=== PATIENT | male | born 1950 | race Caucasian/White ===

== ENCOUNTER 2019-12-27 06:26 | Day surgery (SDC) | payer MEDICARE, OTHER ==
[~2019-12-27 06:26] MED LIST: Midazolam 1 MG/ML 2 ML SDV ONE; Sodium Chloride 0.9% 10 ML Syringe FLUSH PRN; fentaNYL 100 MCG/2 ML SDV ONE
[2019-12-27] MEDS ORDERED: Midazolam 1 MG/ML 2 ML SDV IV ONE (06:27)
[2019-12-27] MEDS ORDERED: fentaNYL 100 MCG/2 ML SDV IV ONE (06:27)
[2019-12-27] MEDS: Dextrose 5%-0.45% NaCl 1,000 ML IV SCH (06:50)
[2019-12-27] MEDS: fentaNYL 100 MCG/2 ML SDV IV ONE ×2 (07:18→07:19)
[2019-12-27] MEDS: Midazolam 1 MG/ML 2 ML SDV IV ONE ×2 (07:19→07:20)
[2019-12-27] MEDS: Sodium Chloride 0.9% 1,000 ML IV SCH (07:22)
--- NOTE | 2019-12-27 08:04 | OR ---
DATE: 12/27/2019 PROCEDURE PERFORMED: Total colonoscopy. INSTRUMENT USED: [id number] Olympus video colonoscope. PREMEDICATIONS: Fentanyl 100 mcg intravenous, Versed 2 mg intravenous. Nasal O2 cannula. The procedure was done under pulse oximetry, BP recording, and cardiac cath lab technologist. INDICATION: Screening colonoscopic examination is done for detection of any polypoid lesions and removal, endoscopic hemostasis therapy if needed. DESCRIPTION OF PROCEDURE: Initial rectal exam was unremarkable. Rigid anoscopy was normal. The colonoscope was passed with ease. Numerous scattered diverticula were noted in the distal left colon along with deformity. The scope was passed with ease up to the ileocecal area. Photographs were taken of the normal-appearing cecum identified by landmarks of appendiceal orifice and double- bulged ileocecal folds. No bleeding was noted from any of the visualized areas at the commencement of the examination. The bowel preparation was found to be adequate. [place] scale was 3 in all the regions, total score 9. No stricture. No vascular ectasia. No large isolated ulcerations seen. No evidence of diffuse inflammatory bowel disease in the form of friability, contact bleeding, or ulcerations. No polyp or tumor mass identified. Probing the proximal sides of folds and flexures using adequate distention and clearing up the stool material, withdrawal of the scope was made. Cecum to rectum time over 6 minutes. No bleeding was noted from any of the visualized areas at the completion of the examination. IMPRESSION: Diverticulosis. The patient tolerated the procedure well. [facility] /[id number]
== END 2019-12-27 09:40 | disposition home or self-care (01) ==
LOC: DL.ENDO 06:26
PROVIDERS: ATTEND Internal Medicine Gastroenterology
DX: Z12.11 Encounter for screening for malignant neoplasm of colon (principal); K57.30 Diverticulosis of large intestine without perforation or abscess without bleeding; I25.10 Atherosclerotic heart disease of native coronary artery without angina pectoris; I10 Essential (primary) hypertension; E78.5 Hyperlipidemia, unspecified; F41.1 Generalized anxiety disorder; F32.9 Major depressive disorder, single episode, unspecified; N52.9 Male erectile dysfunction, unspecified
CPT/HCPCS: J2250; J3010; J7030; J7042

== ENCOUNTER 2020-05-19 10:12 | Emergency (ER) | payer MEDICARE, OTHER ==
--- NOTE | 2020-05-19 10:23 | EDM.PDOC ---
ED HPI GENERAL MEDICAL PROBLEM - General Stated Complaint: PASSED OUT/BLACKED OUT RIGHT RIBS HURT Time Seen by Provider: 05/19/20 10:23 Source of Information: Reports: Patient History Limitations: Reports: No Limitations - History of Present Illness INITIAL COMMENTS - FREE TEXT/NARRATIVE: This 69 yo male patient reports to the ED due to an episode of syncope that happened at about 0130 this morning. The patient reports he was standing at the bathroom sink when he passed out. The patient reports when he passed out he fell backwards onto the toilet. The patient reports he just stayed in the bathroom until just prior to his arrival in the ED. The patient reports he continues to have dizziness with movement and has right posterior rib pain. The patient does have a history of cardiac stents placed 20 years ago, hypertension, anxiety, depression and CAD. The patient reports he has been doing well since his stents and his last visit with cardiology went very well. Onset: Today Onset Date: 05/19/20 Onset Time: 01:30 Duration: Constant Location: Reports: Chest, Other Quality: Reports: Other Severity: Moderate Improves with: Reports: None Worsens with: Reports: None Context: Reports: Other Associated Symptoms: Reports: Other (right posterior chest wall pain) - Related Data Allergies Allergy/AdvReac Type Severity Reaction Status Date / Time No Known Allergies Allergy Verified 05/19/20 10:21 Home Meds: Home Meds Aspirin [Aspirin EC] 81 mg PO DAILY 12/25/19 [History] Escitalopram Oxalate 10 mg PO DAILY 12/25/19 [History] Metoprolol Succinate [Toprol Xl] 75 mg PO DAILY 12/25/19 [History] Multivitamin [Multivitamins] 1 tab PO DAILY 12/25/19 [History] Nitroglycerin 0.4 mg SL ASDIRECTED PRN 12/25/19 [History] Ranitidine HCl 150 mg PO DAILY 12/25/19 [History] atorvaSTATin Calcium [Atorvastatin Calcium] 80 mg PO DAILY 12/25/19 [History] traZODone HCl [Trazodone HCl] 50 mg PO BEDTIME 12/25/19 [History] Sildenafil [Revatio] 60 mg PO ASDIRECTED PRN 12/26/19 [History] Past Medical History HEENT History: Reports: None Cardiovascular History: Reports: CAD, High Cholesterol, Hypertension, [place] Respiratory History: Reports: None Gastrointestinal History: Reports: Chronic Diarrhea, GERD Genitourinary History: Reports: BPH Musculoskeletal History: Reports: Arthritis, Fracture, Gout Neurological History: Reports: None Psychiatric History: Reports: None Endocrine/Metabolic History: Reports: None Hematologic History: Reports: None Immunologic History: Reports: None Oncologic (Cancer) History: Reports: None Dermatologic History: Reports: None - Infectious Disease History Infectious Disease History: Reports: None - Past Surgical History HEENT Surgical History: Reports: None Cardiovascular Surgical History: Reports: Coronary Artery Stent Respiratory Surgical History: Reports: None GI Surgical History: Reports: None Male Surgical History: Reports: None Neurological Surgical History: Reports: None Musculoskeletal Surgical History: Reports: Carpal Tunnel Social & Family History - Caffeine Use Caffeine Use: Reports: Coffee Caffeine Use Comment: 2-3 cups daily ED ROS GENERAL - Review of Systems Review Of Systems: Comprehensive ROS is negative, except as noted in HPI. - Physical Exam Exam: See Below Exam Limited By: No Limitations General Appearance: Alert, WD/WN, Mild Distress Eye Exam: Bilateral Eye: EOMI, Normal Inspection, PERRL Ears: Normal External Exam, Normal Canal, Hearing Grossly Normal, Normal TMs Nose: Normal Inspection, Normal Mucosa, No Blood Throat/Mouth: Normal Inspection, Normal Lips, Normal Teeth, Normal Gums, Normal Oropharynx, Normal Voice, No Airway Compromise Head Exam: Atraumatic, Normocephalic Neck: Normal Inspection, Supple, Non-Tender, Full Range of Motion Respiratory/Chest: No Respiratory Distress, Lungs Clear, Normal Breath Sounds, No Accessory Muscle Use, Other (right posterior rib pain) Cardiovascular: Normal Peripheral Pulses, Regular Rate, Rhythm, No Edema, No Gallop, No JVD, No Murmur, No Rub GI/Abdominal: Normal Bowel Sounds, Soft, Non-Tender, No Organomegaly, No Abnormal Bruit, No Mass, Pelvis Stable, Guarding (Male) Exam: Deferred Rectal (Males) Exam: Deferred Neuro Exam (Abbreviated): Alert, Oriented, CN II-XII Intact, Normal Cognition, Normal Gait, Normal Reflexes, No Motor/Sensory Deficits Back Exam: Normal Inspection, Full Range of Motion, NT Extremities: Normal Inspection, Normal Range of Motion, Non-Tender, No Pedal Edema, Normal Capillary Refill Psychiatric: Normal Affect, Normal Mood Skin Exam: Warm, Dry, Intact, Normal Color, No Rash #1 Interpretation EKG Date: 05/19/20 Time: 10:24 Rhythm: NSR [place]: Normal P-Wave: Present QRS: Normal ST-T: Normal QT: Normal Comparison: NA - No Prior EKG Course - Vital Signs Last Recorded V/S: Last Vital Signs Temp 36.7 C 05/19/20 10:21 Pulse 69 05/19/20 10:21 Resp 16 05/19/20 10:21 BP 144/85 H 05/19/20 10:21 Pulse Ox 97 05/19/20 10:21 - Orders/Labs/Meds Orders: Active Orders 24 hr Category Date Time Status EKG Documentation Completion [RC] STAT Care 05/19/20 10:19 Active Labs: Laboratory Tests 05/19/20 05/19/20 05/19/20 Range/Units 10: 10:28 11:41 WBC 11.5 H (5.0-10.0) 10^3/uL RBC 4.89 (4.6-6.2) 10^6/uL Hgb 15.6 (14.0-18.0) g/dL Hct 44.8 (40.0-54.0) % MCV 91.6 (80-100) fL MCH 31.9 (27.0-34.0) pg MCHC 34.8 (33.0-35.0) g/dL Plt Count 225 (150-450) 10^3/uL Neut % (Auto) 89.7 H (42.2-75.2) % Lymph % (Auto) 5.2 L (20.5-50.1) % [place] % (Auto) 4.7 (2-8) % Eos % (Auto) 0.1 L (1.0-3.0) % Baso % (Auto) 0.3 (0.0-1.0) % Sodium 142 (136-145) mmol/L Potassium 4.2 (3.5-5.1) mmol/L Chloride 103 (98-107) mmol/L Carbon Dioxide 27 (21-32) mmol/L Anion Gap 16.2 H (7-13) mEq/L BUN 15 (7-18) mg/dL Creatinine 1.04 (0.70-1.30) mg/dL Est Cr Clr Drug Dosing 71.40 mL/min Estimated GFR (MDRD) > 60 BUN/Creatinine Ratio 14.4 (No establ ref range) Glucose 165 H (74-99) mg/dL Calcium 8.8 (8.5-10.1) mg/dL Total Bilirubin 0.7 (0.2-1.0) mg/dL AST 21 (15-37) U/L ALT 35 (16-63) U/L Alkaline Phosphatase 80 (46-116) U/L Troponin I < 0.017 (0.000-0.056) ng/mL Total Protein 7.4 (6.4-8.2) g/dL Albumin 3.9 (3.4-5.0) g/dL Globulin 3.5 Albumin/Globulin Ratio 1.1 Urine Color Yellow (YELLOW) Urine Appearance Clear (CLEAR) Urine pH 5.0 (5.0-9.0) Ur Specific [place] >= 1.030 (1.005-1.030) Urine Protein Negative (NEGATIVE) Urine Glucose (UA) Negative (NEGATIVE) Urine Ketones Negative (NEGATIVE) Urine Occult Blood Negative (NEGATIVE) Urine Nitrite Negative (NEGATIVE) Urine Bilirubin Negative (NEGATIVE) Urine Urobilinogen 0.2 (0.2-1.0) mg/dL Ur Leukocyte Esterase Negative (NEGATIVE) Meds: Medications Discontinued Medications Generic Name Dose Route Start Last Admin Trade Name Freq PRN Reason Stop Dose Admin Meclizine HCl 25 mg 05/19/20 11:25 05/19/20 11:43 Meclizine 12.5 Mg Tab PO 05/19/20 11:26 25 mg ONETIME ONE Administration Departure - Departure Time of Disposition: 12:19 Disposition: Home, Self-Care 01 Condition: Fair Clinical Impression: BPPV (benign paroxysmal positional vertigo) Qualifiers: Laterality: unspecified laterality Qualified Code(s): H81.10 - Benign paroxysmal vertigo, unspecified ear Syncope Qualifiers: Syncope type: unspecified Qualified Code(s): R55 - Syncope and collapse - Discharge Information *PRESCRIPTION DRUG MONITORING PROGRAM REVIEWED*: Not Applicable *COPY OF PRESCRIPTION DRUG MONITORING REPORT IN PATIENT NATALY: Not Applicable Instructions: Vertigo, Akne-dx-Titd, Syncope, [id number] Forms: ED Department Discharge Care Plan Goals: The patient was advised of the examination, lab, EKG and x-ray results during the visit. The patient was given a dose of Meclizine while in the ED. The patient was discharged with a script for Meclizine (25 mg) #20 to take 1 by mouth 3 times per day as needed of dizziness. If the patient has any additional symptoms or concerns, the patient should either return to the emergency department or visit his primary care facility. Sepsis Event Note (ED) - Focused Exam Vital Signs: Vital Signs Temp Pulse Resp BP Pulse Ox 05/19/20 10:21 36.7 C 69 16 144/85 H 97 - My Orders Last 24 Hours: My Active Orders 05/19/20 10:19 EKG Documentation Completion [RC] STAT - Assessment/Plan Last 24 Hours: My Active Orders 05/19/20 10:19 EKG Documentation Completion [RC] STAT
--- NOTE | 2020-05-19 10:55 | CR ---
PROCEDURE INFORMATION: Exam: XR Right Ribs with PA Chest Exam date and time: 05/19/2020 10:27 AM Age: 69 years old Clinical indication: Other: Low posterior right rib pain; Additional info: Syncope, fall, right rib pain TECHNIQUE: Imaging protocol: XR Right ribs with PA chest. Views: 3 views COMPARISON: CT Chest Abdomen Pelvis w Cont 01/29/2020 8:48 AM FINDINGS: Lungs: Unremarkable. No consolidation. Pleural spaces: Fluid or thickened pleura in the left costophrenic angle. Heart/Mediastinum: Unremarkable. No cardiomegaly. Vasculature: Aortic calcifications. Diaphragm: Elevated right hemidiaphragm Bones/joints: Deformity suspicious for nondisplaced fracture the anterior right 9th and 10th ribs near the costochondral junction. Degenerative arthritis in the spine and shoulders. IMPRESSION: 1. Findings suspicious for nondisplaced fractures of the right anterior 9th and 10th ribs near the costochondral junction
[2020-05-19 10:58] LABS: ANION GAP 16.2 mEq/L (7-13); CHLORIDE,CL 103 mmol/L (98-107); SODIUM,NA 142 mmol/L (136-145)
[2020-05-19] MEDS ORDERED: Meclizine 12.5 MG Tab PO ONE (11:25)
== END 2020-05-19 12:36 | disposition home or self-care (01) ==
LOC: DL.ED 10:12
DX: H81.10 Benign paroxysmal vertigo, unspecified ear (principal); R55 Syncope and collapse; R07.81 Pleurodynia; I25.10 Atherosclerotic heart disease of native coronary artery without angina pectoris; I25.2 Old myocardial infarction; E78.00 Pure hypercholesterolemia, unspecified; I10 Essential (primary) hypertension; K21.9 Gastro-esophageal reflux disease without esophagitis; Z95.5 Presence of coronary angioplasty implant and graft; Z79.82 Long term (current) use of aspirin; Z79.899 Other long term (current) drug therapy
CPT/HCPCS: 36415; 71101; 80053; 81003; 84484; 85025; 93005; 93010; 99284; A9270

== ENCOUNTER 2021-03-28 20:32 | Emergency (ER) | payer MEDICARE, OTHER ==
[2021-03-28] MEDS ORDERED: Metoprolol Tartrate 5 MG/5 ML SDV IVPUSH ONE (21:02)
[2021-03-28] MEDS ORDERED: Sodium Chloride 0.9% 10 ML Syringe FLUSH PRN (21:06)
[2021-03-28] MEDS ORDERED: Iopamidol 755 Mg/ML 100 ML Bottle IVPUSH ONE (21:10)
[2021-03-28] MEDS ORDERED: NITROPRUSSIDE 50 MG/2 ML ONE (21:12)
[2021-03-28] MEDS ORDERED: Nitroprusside 50 MG in Dextrose 5% in Water 248 ML IV SCH ×2 (21:15)
[2021-03-28 22:02] LABS: CHLORIDE,CL 103 mmol/L (98-107); SODIUM,NA 137 mmol/L (136-145)
[2021-03-28] MEDS ORDERED: GI Cocktail Oral Solution 30 ML PO ONE (22:58)
[2021-03-29] MEDS ORDERED: Omeprazole 20 MG Cap.CR PO ONE (01:52)
== END 2021-03-29 02:22 | disposition home or self-care (01) ==
LOC: DL.ED 20:32
DX: R07.9 Chest pain, unspecified (principal); K21.9 Gastro-esophageal reflux disease without esophagitis; I25.10 Atherosclerotic heart disease of native coronary artery without angina pectoris; E78.00 Pure hypercholesterolemia, unspecified; I10 Essential (primary) hypertension; I25.2 Old myocardial infarction; Z79.82 Long term (current) use of aspirin; Z79.899 Other long term (current) drug therapy; Z95.5 Presence of coronary angioplasty implant and graft
CPT/HCPCS: 36415; 71260; 74177; 80053; 82150; 83605; 83615; 83690; 83735; 83880; 84443; 84484; 85025; 85379; 85610; 86140; 93005; 93010; 96365; 96366; 99285; 99285-25; A9270-GY; J7060; Q9967

== ENCOUNTER 2023-03-11 01:38 | Emergency (ER) | payer MEDICARE, OTHER ==
[2023-03-11] MEDS ORDERED: Succinylcholine 200 MG/10 ML MDV IV ONE (01:39)
[2023-03-11] MEDS ORDERED: Midazolam 5 MG/ML 10 ML MDV IV ONE (01:39)
[2023-03-11] MEDS ORDERED: Ketamine 500 mg/10 ML MDV IV ONE (01:39)
[2023-03-11] MEDS ORDERED: Benzocaine 20% Topical Spray UD MUCMEM ONE (02:00)
[2023-03-11] MEDS ORDERED: Sodium Chloride 0.9% 1,000 ML IV ONE (02:01)
[2023-03-11] MEDS ORDERED: Iopamidol 612 MG/ML 100 ML Bottle IVPUSH ONE (02:04)
[2023-03-11 02:13] LABS: HEMATOCRIT 50.3 % (40.0-54.0); HEMOGLOBIN 16.6 g/dL (14.0-18.0); PLATELET COUNT,PLT 231 10^3/uL (150-450); RED BLOOD CELL COUNT 5.35 10^6/uL (4.6-6.2); WHITE BLOOD CELL COUNT,WBC 26.6 10^3/uL (5.0-10.0)
[2023-03-11 02:15] LABS: BASOPHILS PERCENT AUTO 0.3 % (0.0-1.0); LYMPHOCYTES PERCENT AUTO 2.8 % (20.5-50.1); NEUTROPHILS PERCENT AUTO 88.9 % (42.2-75.2)
[2023-03-11 02:18] LABS: ANION GAP 18.5 mEq/L (7-13); BLOOD UREA NITROGEN,BUN 15 mg/dL (7-18); C-REACTIVE PROTEIN 21.14 ng/dL (<=0.50); CALCIUM 9.3 mg/dL (8.5-10.1); CARBON DIOXIDE,CO2 26 mmol/L (21-32); CHLORIDE,CL 100 mmol/L (98-107); CREATININE 1.06 mg/dL (0.70-1.30); GLUCOSE RANDOM 164 mg/dL (70-99); POTASSIUM,K 3.5 mmol/L (3.5-5.1); SODIUM,NA 141 mmol/L (136-145)
[2023-03-11 02:21] LABS: ESTIMATED GFR 75 mL/min (>=60)
[2023-03-11 02:22] LABS: MONONUCLEOSIS SCREEN NEGATIVE
[2023-03-11 02:26] LABS: LACTIC ACID 2.1 mmol/L (0.4-2.0)
[2023-03-11] MEDS ORDERED: Clindamycin in 0.9 % Sod Chlor 600 MG in Premix Bag 1 BAG IV ONE ×2 (02:29)
[2023-03-11 02:57] LABS: BAND PERCENT MAN 3 %; LYMPHOCYTES PERCENT MAN 4 % (20-50); MONOCYTES PERCENT MAN 8 % (2-8); SEG NEUTROPHILS PERCENT MAN 85 % (42-75)
[2023-03-11] MEDS ORDERED: Dexamethasone 4 MG/ML SDV IVPUSH ONE (03:08)
[2023-03-11] MEDS ORDERED: Ampicillin/Sulbactam Na 3 GM in Sodium Chloride 0.9% 100 ML IV ONE (03:38)
[2023-03-11] MEDS ORDERED: Ketorolac 30 MG/ML SDV IVPUSH ONE (04:17)
[2023-03-11] MEDS ORDERED: Pantoprazole 40 MG Vial IVPUSH ONE (04:19)
[2023-03-11] MEDS ORDERED: propofoL 100 ML IV SCH (04:45)
[2023-03-11] MEDS ORDERED: fentaNYL 500 MCG in Sodium Chloride 0.9% 50 ML IV SCH (04:45)
[2023-03-11 05:54] LABS: O2 DELIVERY DEVICE VENTILATOR
[2023-03-11 05:55] LABS: BASE EXCESS ARTERIAL -1 mmol/L ((-2)-(+3)); O2 SATURATION ARTERIAL 99 % (95-100); PCO2 ARTERIAL 44 mmHg (35-45); PH,ARTERIAL 7.36 (7.35-7.45); PO2 ARTERIAL 114 mmHg (70-100)
[2023-03-11 05:56] LABS: ALLEN TEST positive
== END 2023-03-11 06:42 ==
LOC: DL.ED 01:38 → DL.MS 03:56 → UNDOADMOB 03:56 → DL.ED 06:42
DX: J36 Peritonsillar abscess (principal); R73.9 Hyperglycemia, unspecified; J98.8 Other specified respiratory disorders; I10 Essential (primary) hypertension; I25.10 Atherosclerotic heart disease of native coronary artery without angina pectoris; E78.00 Pure hypercholesterolemia, unspecified; I25.2 Old myocardial infarction; Z79.82 Long term (current) use of aspirin; Z79.899 Other long term (current) drug therapy
CPT/HCPCS: 31500; 36415; 36600; 51702; 70491; 71045; 80048; 82803; 83605; 85025; 86140; 86308; 87040; 96361; 96365; 96367; 96368; 96375; 99284; 99285-25; A9270-GY; C9113; J0295; J0330; J1100; J2250; J2704; J3010; J3370; J3490; J7030; J7050; Q9967